=== PATIENT | male | born 1985 | race African-American/Black ===

== ENCOUNTER 2018-07-06 09:02 | Emergency (ER) | payer OTHER ==
[~2018-07-06] VITALS: Ht 185.4 cm; Wt 68.0 kg
[2018-07-06 09:05] VITALS: BP 133/81
[2018-07-06 09:56] LABS: BASO % 1 % (0-3); EOS # 0.1 x10^3/uL (0.0-0.7); EOS % 2 % (0-3); HEMATOCRIT 47.5 % (39.0-53.0); HEMOGLOBIN 16.1 g/dL (13.0-17.5); LYMPH # 1.8 x10^3/uL (1.0-4.8); LYMPH % 33 % (24-48); MEAN CORPUSCULAR HEMOGLOBIN 32 pg (25-35); MEAN CORPUSCULAR HGB CONC 34 g/dL (31-37); MEAN CORPUSCULAR VOLUME 96 fL (79-100); MONO # 0.6 x10^3/uL (0.0-1.1); MONO % 11 % (0-9); NEUT % 55 % (31-73); PLATELET COUNT 149 x10^3/uL (140-400); RED BLOOD COUNT 4.97 x10^6/uL (4.30-5.70); RED CELL DISTRIBUTION WIDTH 13.6 % (11.5-14.5); WHITE BLOOD COUNT 5.4 x10^3/uL (4.0-11.0)
[2018-07-06 10:03] LABS: CALCIUM 9.9 mg/dL (8.5-10.1); GFR 103.5; POTASSIUM 5.1 mmol/L (3.5-5.1)
[2018-07-06 10:09] LABS: ALBUMIN 4.1 g/dL (3.4-5.0); ALBUMIN/GLOBULIN RATIO 1.1 (1.0-1.7); TOTAL BILIRUBIN 0.8 mg/dL (0.2-1.0); TOTAL PROTEIN 7.7 g/dL (6.4-8.2)
[2018-07-06 10:26] LABS: PLT ESTIMATE ADEQUATE (ADEQUATE)
--- NOTE | 2018-07-06 10:42 | RAD ---
Acute Abdominal Series: Technique: PA view of the chest and supine and upright views of the abdomen were obtained. History: Pain. Comparison: None. Findings: The lungs and pleural margins are clear. The bowel gas pattern appears normal. There is no free air. Impression: Radiographically normal acute abdominal series. Electronically signed by: Erlin Lei III, MD (07/06/2018 10:39 AM) [facility]
[2018-07-06 11:05] LABS: BILIRUBIN,URINE NEGATIVE (NEG); CLARITY,URINE CLEAR; COLOR,URINE YELLOW; NITRITE,URINE NEGATIVE (NEG); PROTEIN,URINE NEGATIVE (NEG-TRACE); UROBILINOGEN,URINE 0.2 mg/dL (0.2 mg/dL)
[2018-07-06 11:11] LABS: BARBITURATES NEG (NEG); BENZODIAZEPINES NEG (NEG); CANNABINOIDS POS (NEG); COCAINE NEG (NEG); METHADONE NEG (NEG); OPIATES NEG (NEG); PHENCYCLIDINE POS (NEG)
[2018-07-06 11:12] LABS: AMPHETAMINE/METHAMPHETAMINE NEG (NEG)
--- NOTE | 2018-07-06 11:21 | PHYS DOC ---
Past Medical History Past Medical History: Asthma Past Surgical History: Other Additional Past Surgical Histo: cyst removed from R leg Alcohol Use: Occasionally Drug Use: Marijuana, Phencyclidine Adult General Chief Complaint Chief Complaint: ABDOMINAL PAIN HPI HPI Patient is a 33 year old male who presents with abdominal pain and loss of appetite. The patient has mild pain, and states that he doesn't feel much like eating. He denies nausea, vomiting, constipation or diarrhea. He is very vague about his symptoms. Review of Systems Review of Systems Constitutional: Denies fever or chills [] Eyes: Denies change in visual acuity, redness, or eye pain [] HENT: Denies nasal congestion or sore throat [] Respiratory: Denies cough or shortness of breath [] Cardiovascular: No additional information not addressed in HPI [] GI: See HPI : Denies dysuria or hematuria [] Musculoskeletal: Denies back pain or joint pain [] Integument: Denies rash or skin lesions [] Neurologic: Denies headache, focal weakness or sensory changes [] Endocrine: Denies polyuria or polydipsia [] All other systems were reviewed and found to be within normal limits, except as documented in this note. Allergies Allergies Allergies Coded Allergies Type Severity Reaction Last Updated Verified Penicillins Allergy Severe "I swell up" 02/14/15 Yes Physical Exam Physical Exam Constitutional: Well developed, well nourished, no acute distress, non-toxic appearance. [] HENT: Normocephalic, atraumatic, bilateral external ears normal, oropharynx moist, no oral exudates, nose normal. [] Eyes: PERRLA, EOMI, conjunctiva normal, no discharge. [] Neck: Normal range of motion, no tenderness, supple, no stridor. [] Cardiovascular:Heart rate regular rhythm, no murmur [] Lungs & Thorax: Bilateral breath sounds clear to auscultation [] Abdomen: Bowel sounds normal, soft, no tenderness, no masses, no pulsatile masses. [] Skin: Warm, dry, no erythema, no rash. [] Back: No tenderness, no CVA tenderness. [] Extremities: No tenderness, no cyanosis, no clubbing, ROM intact, no edema. [] Neurologic: Alert and oriented X 3, normal motor function, normal sensory function, no focal deficits noted. [] Psychologic: Affect normal, judgement normal, mood normal. [] Current Patient Data Vital Signs Lab Values Laboratory Tests Test 07/06/18 09:45 07/06/18 10:50 White Blood Count 5.4 x10^3/uL (4.0-11.0) Red Blood Count 4.97 x10^6/uL (4.30-5.70) Hemoglobin 16.1 g/dL (13.0-17.5) Hematocrit 47.5 % (39.0-53.0) Mean Corpuscular Volume 96 fL (79-100) Mean Corpuscular Hemoglobin 32 pg (25-35) Mean Corpuscular Hemoglobin Concent 34 g/dL (31-37) Red Cell Distribution Width 13.6 % (11.5-14.5) Platelet Count 149 x10^3/uL (140-400) Neutrophils (%) (Auto) 55 % (31-73) Lymphocytes (%) (Auto) 33 % (24-48) Monocytes (%) (Auto) 11 % (0-9) H Eosinophils (%) (Auto) 2 % (0-3) Basophils (%) (Auto) 1 % (0-3) Neutrophils # (Auto) 3.0 x10^3uL (1.8-7.7) Lymphocytes # (Auto) 1.8 x10^3/uL (1.0-4.8) Monocytes # (Auto) 0.6 x10^3/uL (0.0-1.1) Eosinophils # (Auto) 0.1 x10^3/uL (0.0-0.7) Basophils # (Auto) 0.0 x10^3/uL (0.0-0.2) Platelet Estimate Adequate (ADEQUATE) Large Platelets Few Sodium Level 140 mmol/L (136-145) Potassium Level 5.1 mmol/L (3.5-5.1) Chloride Level 104 mmol/L (98-107) Carbon Dioxide Level 30 mmol/L (21-32) Anion Gap 6 (6-14) Blood Urea Nitrogen 12 mg/dL (8-26) Creatinine 1.0 mg/dL (0.7-1.3) Estimated GFR (Cockcroft-Gault) 103.5 BUN/Creatinine Ratio 12 (6-20) Glucose Level 101 mg/dL (70-99) H Calcium Level 9.9 mg/dL (8.5-10.1) Total Bilirubin 0.8 mg/dL (0.2-1.0) Aspartate Amino Transferase (AST) 17 U/L (15-37) Alanine Aminotransferase (ALT) 29 U/L (16-63) Alkaline Phosphatase 79 U/L (46-116) Total Protein 7.7 g/dL (6.4-8.2) Albumin 4.1 g/dL (3.4-5.0) Albumin/Globulin Ratio 1.1 (1.0-1.7) Urine Collection Type Unknown Urine Color Yellow Urine Clarity Clear Urine pH 6.0 Urine Specific [place] 1.025 Urine Protein Negative mg/dL (NEG-TRACE) Urine Glucose (UA) Negative mg/dL (NEG) Urine Ketones (Stick) Negative mg/dL (NEG) Urine Blood Negative (NEG) Urine Nitrite Negative (NEG) Urine Bilirubin Negative (NEG) Urine Urobilinogen Dipstick 0.2 mg/dL (0.2 mg/dL) Urine Leukocyte Esterase Negative (NEG) Urine RBC Occ /HPF (0-2) Urine WBC Occ /HPF (0-4) Urine Squamous Epithelial Cells Occ /LPF Urine Bacteria Few /HPF (0-FEW) Urine Mucus Marked /LPF Urine Opiates Screen Neg (NEG) Urine Methadone Screen Neg (NEG) Urine Barbiturates Neg (NEG) Urine Phencyclidine Screen Pos (NEG) Urine Amphetamine/Methamphetamine Neg (NEG) Urine Benzodiazepines Screen Neg (NEG) Urine Cocaine Screen Neg (NEG) Urine Cannabinoids Screen Pos (NEG) Urine Ethyl Alcohol Neg (NEG) Laboratory Tests 07/06/18 09:45 Laboratory Tests 07/06/18 09:45 EKG EKG [] Radiology/Procedures Radiology/Procedures [] PATIENT: BAUDILIO SERNA ACCOUNT: [id number] : 1985 LOCATION: ER AGE: 33 SEX: M EXAM STATUS: PRE ER ORD. PHYSICIAN: JONATHAN LEAL APRN REASON: abdominal pain and loss of appetite PROCEDURE: ACUTE ABDOMEN SERIES Acute Abdominal Series: Technique: PA view of the chest and supine and upright views of the abdomen were obtained. History: Pain. Comparison: None. Findings: The lungs and pleural margins are clear. The bowel gas pattern appears normal. There is no free air. Impression: Radiographically normal acute abdominal series. Electronically signed by: Lee Ann Rowe III, MD (07/06/2018 10:39 AM) [facility] DICTATED and SIGNED BY: LEE ANN ROWE III, MD DATE: 07/06/18 1038 Course & Med Decision Making Course & Med Decision Making Pertinent Labs and Imaging studies reviewed. (See chart for details) []The patient is positive for mult-substance abuse including PCP. He was offered help with rehab, but declined. He was counseled to stop ingesting these substan gadiel. Dragon Disclaimer Dragon Disclaimer This electronic medical record was generated, in whole or in part, using a voice recognition dictation system. Departure Departure Impression: Primary Impression: Lack of appetite Additional Impressions: PCP abuse Marijuana abuse Disposition: 01 HOME, SELF-CARE Condition: STABLE Referrals: UNKNOWN PCP NAME (PCP) Patient Instructions: Eating Disorders, Anorexia and Bulimia-SportsMed Additional Instructions: It is recommended that you stop using PCP and marijuana. Follow-up with the [facility] for resources to help with your substance abuse as well as depression and anxiety. If worsening return to the emergency department. Problem Qualifiers JONATHAN LEAL APRN Jul 06, 2018 11:21
[2018-07-06 11:26] LABS: BACTERIA,URINE FEW /HPF (0-FEW); SQUAMOUS EPITHELIAL CELL,UR OCC /LPF
[2018-07-06 11:27] LABS: RBC,URINE OCC /HPF (0-2); WBC,URINE OCC /HPF (0-4)
== END 2018-07-06 12:03 | disposition home or self-care (01) ==
LOC: ER 09:02
DX: R63.0 Anorexia (principal); Z68.1 Body mass index [BMI] 19.9 or less, adult; F12.10 Cannabis abuse, uncomplicated; F16.10 Hallucinogen abuse, uncomplicated; R10.9 Unspecified abdominal pain; Z88.0 Allergy status to penicillin
CPT/HCPCS: 36415; 74022; 80053; 80307; 81001; 85025; 99284

== ENCOUNTER → 2019-02-04 | Outpatient (CLI) | payer OTHER | END | disposition home or self-care (01) | LOC: PF 09:57 | PROVIDERS: ATTEND Family Medicine | DX: R94.2 Abnormal results of pulmonary function studies (principal) | CPT/HCPCS: 94010 ==

== ENCOUNTER 2020-11-09 10:44 | Emergency (ER) | payer MEDICAID, OTHER ==
[~2020-11-09] VITALS: Ht 193 cm; Wt 76.1 kg
--- NOTE | 2020-11-09 11:04 | PHYS DOC ---
Past Medical History Past Medical History: Asthma Past Surgical History: Other Additional Past Surgical Histo: cyst removed from R leg Smoking Status: Current Every Day Smoker Alcohol Use: Occasionally Drug Use: Marijuana, Phencyclidine General Adult EDM: Chief Complaint: LOWER EXT PAIN HPI: HPI: Patient is a 35-year-old presenting for right foot pain. Onset was noticed this morning without any known inciting event or trauma. Direct pressure and wearing certain shoes make worse, not wearing any shoe and touching it makes better. Patient describes focal pain without radiation on medial portion of foot with development of the blister, he is concerned it might be something infected. Otherwise healthy, no pertinent comorbid conditions Review of Systems: Review of Systems: Fourteen body systems of review of systems have been reviewed. See HPI for pertinent positives and negative responses, other zapien all other systems are negative, non-pertinent or non-contributory Heart Score: C/O Chest Pain: No Risk Factors: Risk Factors: DM, Current or recent (<one month) smoker, HTN, HLP, family history of CAD, obesity. Risk Scores: Score 0 - 3: 2.5% MACE over next 6 weeks - Discharge Home Score 4 - 6: 20.3% MACE over next 6 weeks - Admit for Clinical Observation Score 7 - 10: 72.7% MACE over next 6 weeks - Early Invasive Strategies Allergies: Allergies: Allergies Coded Allergies Type Severity Reaction Last Updated Verified Penicillins Allergy Severe "I swell up" 02/14/15 Yes Physical Exam: PE: Constitutional: Well developed, well nourished, no acute distress, non-toxic appearance. HENT: Normocephalic, atraumatic, bilateral external ears normal, oropharynx moist, no oral exudates, nose normal. Eyes: PERRLA, EOMI, conjunctiva normal, no discharge. Neck: Normal range of motion, no tenderness, supple, no stridor. Cardiovascular: Heart rate regular per monitor Lungs & Thorax: No respiratory distress or accessory muscle use, bilateral chest rise Abdomen: Abdomen soft, non-tender, bowel sounds present in all quadrants, no guarding or rebound, nonacute abdomen. Skin: Warm, dry, no erythema, no rash. 8 x 3 mm blood blister on medial portion of right foot on superior portion of the arch of foot well-appearing Back: No tenderness, no CVA tenderness. Extremities: No tenderness, no cyanosis, no clubbing, ROM intact, no edema. Neurologic: Alert and oriented X 3, grossly normal motor & sensory function, no focal deficits noted. Psychologic: Affect normal, judgement normal, mood normal. EKG: EKG: [] Radiology/Procedures: Radiology/Procedures: [] Course & Med Decision Making: Course & Med Decision Making ABCs unremarkable. I disclosed entirety of ER findings and discussed most likely diagnosis of blood blister to right medial foot that was popped and drained w hile in ER. No indication for further work-up, continued supportive care advised. I stressed need for close outpatient follow-up to review today's ER visit. Strict return precautions were also discussed at length with good understanding by patient. Patient voiced understanding and agreement with the plan. Patient knows to come back for repeat evaluation if concerning signs or symptoms present prior to outpatient follow-up. Hemodynamically stable, ambulatory and well-appearing at time of disposition. Dragon Disclaimer: Dragon Disclaimer: This electronic medical record was generated, in whole or in part, using a voice recognition dictation system. Departure Departure Impression: Primary Impression: Blister of right foot Disposition: 01 HOME / SELF CARE / HOMELESS Condition: STABLE Referrals: KENDALL JOYA MD (PCP) Additional Instructions: As discussed prior to ER departure, your vital signs and physical exam were nonconcerning for any emergent or surgical issues. You had a blood blister which was drained while in ER. Continue supportive care practices at home. Please follow-up with your primary care physician in the outpatient setting. If any concerning signs or symptoms present prior to outpatient follow-up please do not hesitate to come back. Is a pleasure to take care of you and I wish you the best going forward RONALD MAGUIRE DO Nov 09, 2020 11:04
== END 2020-11-09 11:10 | disposition home or self-care (01) ==
LOC: ER 10:44
DX: J45.909 Unspecified asthma, uncomplicated (principal); F17.200 Nicotine dependence, unspecified, uncomplicated; Z88.0 Allergy status to penicillin; S90.821A Blister (nonthermal), right foot, initial encounter; X58.XXXA Exposure to other specified factors, initial encounter; Y93.89 Activity, other specified; Y92.89 Other specified places as the place of occurrence of the external cause; Y99.8 Other external cause status
CPT/HCPCS: 99281